=== PATIENT | female | born 1945 | race American Indian/Alaskan Native ===

== ENCOUNTER 2020-03-09 10:57 | Outpatient (CLI) | payer MEDICARE ==
[2020-03-09 11:52] LABS: Blood Urea Nitrogen 14 mg/dL (7-17)
--- NOTE | 2020-03-09 16:17 | Cat Scan Report ---
CT neck w con INDICATION / CLINICAL INFORMATION: 75 years Female; DYSPHAGIA. TECHNIQUE: Contiguous thin cut axial images obtained through the neck following IV contrast. Sagittal and toney l reconstructions performed by the technologist. All CT scans at this location are performed using CT dose reduction for ALARA by means of automated exposure control. COMPARISON: None available. FINDINGS: MUCOSAL SPACE: No definitive focal lesions are seen involving the oral pharyngeal soft tissues. The e piglottis is appropriate in size and contour. The laryngeal structures appear fairly symmetric. LYMPH NODES: There is paucity of fat along the cervical fascial planes. However, there are a few scat tered small lymph nodes particularly along the jugular chains which are most likely reactive. There i s no clear CT evidence of pathologic cervical lymphadenopathy. SALIVARY GLANDS: The visualized parotid and submandibular glands demonstrate fairly symmetric attenua tion without calcification. THYROID GLAND: The thyroid gland is within normal limits in size and contour. PARANASAL SINUSES: There is opacification along the lateral right sphenoid sinus. SPINE: There are multilevel degenerative the changes involving cervical spine, most notable at C4-5 a nd C5-6. VASCULAR STRUCTURES: There is mild atherosclerotic calcification involving carotid bifurcations bilat erally without CT evidence of significant stenosis. There is no significant displacement of the visualized upper esophagus. IMPRESSION: 1. There is no CT evidence of focal lesions or significant inflammatory changes involving the visuali zed soft tissues of the neck. 2. There is opacification along the lateral right sphenoid sinus. 3. There are multilevel degenerative changes involving the cervical spine, most notable at C4-5 and C 5-6. Signer Name: Micky Nino MD Signed: 03/09/2020 4:12 PM Workstation Name: [id number]
== END 2020-03-09 10:58 | disposition home or self-care (01) ==
LOC: CT 10:57
PROVIDERS: ATTEND Otolaryngology
DX: I65.23 Occlusion and stenosis of bilateral carotid arteries (principal); J98.4 Other disorders of lung; M47.892 Other spondylosis, cervical region
CPT/HCPCS: 36415; 70491; 82565; 84520; Q9967